=== PATIENT | female | born 1975 | race Hispanic/Latino ===

== ENCOUNTER 2019-05-30 09:36 | Emergency (ER) | payer SELFPAY ==
[2019-05-30] MEDS ORDERED: DEXAMETHASONE SOD PHOSPHATE 10MG/ML 1ML VIAL ONE (09:55)
[2019-05-30] MEDS ORDERED: KETOROLAC TROMETHAMINE 60 MG/2 ML VIAL ONE (09:55)
== END 2019-05-30 10:46 | disposition home or self-care (01) ==
LOC: EDH 09:36
DX: M54.42 Lumbago with sciatica, left side (principal); Z98.890 Other specified postprocedural states
CPT/HCPCS: 81025; 96372 ×2; 99284; J1100; J1885